=== PATIENT | female | born 1970 | race African-American/Black ===

== ENCOUNTER 2020-02-04 01:58 | Emergency (ER) | payer SELFPAY ==
[~2020-02-04] VITALS: Ht 149.9 cm; Wt 74.8 kg
[2020-02-04 02:15] VITALS: BP 143/76
--- NOTE | 2020-02-04 02:22 | Emergency Room Report ---
History of Present Illness General Chief Complaint: Upper Respiratory Illness Source: Patient Present Illness HPI Disclaimer: Please note that this report is being documented using DRAGON technology. This can lead to erroneous entry secondary to incorrect interpretation by the dictating instrument. HPI: 50-year-old female presents for evaluation of persistent cough. 2 weeks ago she began coughing and was seen at urgent care where she tested negative for COVID-19 and had negative chest x-ray. She was started on Zithromax, Tessalon Perles, Ventolin inhaler. Noted minor improvement. Cough persisted and last week she was seen again in urgent care where again she tested negative for COVID-19. Since then she notes a persistent cough and no other changes in her medications. Denies fever, chills, vomiting. She reports worsening rib pain from persistent coughing but denies significant shortness of breath or wheezing. Denies chest pain. Allergies: Coded Allergies: GUAIFENESIN (Verified Allergy, Unknown, 02/04/20) COVID-19 Screening Contact w/high risk pt: No Recent Travel to affected area: No Experienced COVID-19 symptoms?: Yes COVID-19 symptoms experienced: Cough COVID-19 Testing performed DUMPER BULK SYSTEM: Yes COVID-19 Screening: Negative COVID-19 COVID-19 Testing Source: Urgent care Review of Systems All Other Systems: negative except mentioned in HPI Physical Exam Vital Signs Date Time Temp Pulse Resp B/P (MAP) Pulse Ox O2 Delivery O2 Flow Rate FiO2 02/04/20 02:15 98.2 95 20 143/76 (98) 96 Room Air General: Awake and alert, no acute distress HEENT: NC/AT. EOMI. Cardiovascular: RRR. S1 and S2 normal. No murmur appreciated Resp: Normal work of breathing. No cough, wheezing or crackles appreciated Skin: Intact. No abrasions, laceration or rash over the exposed skin MSK: Normal tone and bulk. Moving all extremities. No obvious deformity. Neuro: Awake and alert. Mentating appropriately. Medical Decision Making Diagnostic Impression: Primary Impression: Cough ER Course 50-year-old female presents for evaluation of 2-week cough. She arrives with stable vital signs, afebrile and physical exam is reassuring. No findings on lung exam. Chest x-ray does not show obvious infiltrate. She is afebrile with stable vital signs and good oxygenation. We will add promethazine with codeine for cough suppression and continue on the Ventolin. She will follow-up with her PMD this week. Discussed reasons to return to the emergency department. She understands and agrees with treatment plan. Chest X-Ray Diagnostic Results Chest X-Ray Diagnostic Results : Chest X-Ray Ordered: Yes # of Views/Limited/Complete: 1 View Indication: Other - Cough Interpretation: no consolidation, no effusion, no pneumothorax Impression: No acute disease Electronically Signed by: Electronically signed by Dr. Thierry Hill Last Vital Signs Date Time Temp Pulse Resp B/P (MAP) Pulse Ox O2 Delivery O2 Flow Rate FiO2 02/04/20 02:15 98.2 95 20 143/76 (98) 96 Room Air Disposition: HOME, SELF-CARE Condition: Stable Scripts Promethazine HCl/Codeine (Prometh-Codein 6.25-10 mg/5 ml) 5 Ml Syrup 5 ML PO Q6H for 5 Days, #100 ML Prov: Thierry Hill MD 02/04/20 Thierry Hill MD Feb 04, 2020 02:22
[2020-02-04] MEDS ORDERED: PROMETH-CODEIN 65 ML PO (02:24)
[2020-02-04 03:00] VITALS: BP 143/76
--- NOTE | 2020-02-04 03:24 | Diagnostic Imaging Report ---
EXAM: XR Chest, 1 View CLINICAL HISTORY: COUGH TECHNIQUE: Frontal view of the chest. COMPARISON: No relevant prior studies available. FINDINGS: Study limited to single AP portable chest radiograph. Borderline cardiac enlargement. Negative for evidence of focal consolidation, pneumothorax or pleural fluid collections. Recommend upright PA and lateral views of the chest when clinically feasible.
== END 2020-02-04 03:00 | disposition home or self-care (01) ==
LOC: EMR 02:31
DX: R05 Cough (principal); Z88.8 Allergy status to other drugs, medicaments and biological substances
CPT/HCPCS: 71045; 99283